=== PATIENT | male | born 1975 | race Caucasian/White ===

== ENCOUNTER 2023-07-21 12:25 | Emergency (ER) | payer BC, SELFPAY ==
[2023-07-21 12:30] VITALS: BP 193/111; PULSE 87; RESP 18; TEMP 36.6; O2SAT 98; BMI 32.5
--- NOTE | 2023-07-21 12:41 | CRLHL7_ITS ---
For Patients: As a result of the Cures Act, medical imaging exams and procedure reports are released immediately into your electronic medical record. You may view this report before your referring provider. If you have questions, please contact your health care provider. INDICATION: CP INDICATION: Chest pain. TECHNIQUE: Chest 1 view. COMPARISON: 11/03/2021. 07/18/2019. FINDINGS: Cardiovascular and mediastinum: Heart size and vasculature are normal in caliber and appearance. Mediastinum is within normal limits. Lungs and pleural space: Lungs are clear. No sign of infiltrate or mass. No sign of pleural effusion. No pneumothorax. Bones and soft tissues: manager process leads overlie the patient. IMPRESSION: Lungs are clear. Dictated by Duy Amaro MD @ 07/21/2023 1:34:50 PM Dictated by: Duy Amaro MD @ 07/21/2023 13:34:57 (Electronically Signed)
--- NOTE | 2023-07-21 12:49 | ED.GENADULT ---
HPI - General Adult General Chief complaint: Chest Pain Stated complaint: heartburn, chest pain Time Seen by Provider: 07/21/23 12:26 History of Present Illness HPI narrative: Patient is a 47 year white male was seen promptly on presentation to the ER with 1 month history of what he describes as ?heartburn?. He has been on pantoprazole and has not really helped him much she has also taken Pepcid. He has a history of using inhalers and blood pressure medication. He has not changed his diet at all. He denies bleeding in the stool or vomiting blood. He has not had a upper GI study for quite some time. He reports since his 20s. Really no anterior chest pain, no diaphoresis, no nausea, he occasionally feels lightheaded with the burning. He describes in his epigastrium radiating up to his upper chest. He has found no relief with the acid suppressant medicines. He has had no known heart disease. His EKG done on presentation by my read shows normal sinus rhythm normal EKG no acute ST T wave changes. Related Data Home Medications Medication Instructions Recorded Confirmed atorvastatin 10 mg tablet 10 mg PO QDAY 05/09/22 05/09/22 budesonide-formoterol HFA 80 1 inh inhalation ONCE 05/09/22 05/09/22 mcg-4.5 mcg/actuation aerosol inhaler (Symbicort) cromolyn 20 mg/2 mL solution for 2 ml inhalation TID 05/09/22 05/09/22 nebulization fluticasone propionate 44 1 puff inhalation BID 05/09/22 05/09/22 mcg/actuation HFA aerosol inhaler gabapentin 100 mg capsule 100 mg PO QDAY 05/09/22 05/09/22 levothyroxine 13 mcg capsule 13 mcg PO QDAY 05/09/22 05/09/22 metoprolol succinate 25 mg 12.5 mg PO QDAY 05/09/22 05/09/22 tablet,extended release 24 hr montelukast 4 mg oral granules in mg PO 05/09/22 05/09/22 packet pantoprazole 20 mg tablet,delayed 20 mg PO QDAY 05/09/22 05/09/22 release solifenacin 5 mg tablet 5 mg PO QDAY 05/09/22 05/09/22 tamsulosin 0.4 mg capsule 0.4 mg PO QDAY 05/09/22 05/09/22 Previous Rx's Medication Instructions Recorded azithromycin 500 mg tablet See Rx Instructions PO .COMPLEX #3 05/09/22 (Zithromax) tabs prednisone 20 mg tablet 40 mg (2 x 20 mg) PO QDAY #7 tabs 05/09/22 Allergies Allergy/AdvReac Type Severity Reaction Status Date / Time amoxicillin [From Augmentin] Allergy Intermediate Vomiting Verified 05/09/22 16:51 ciprofloxacin Allergy Intermediate headahce Verified 05/09/22 16:51 clavulanic acid Allergy Intermediate Vomiting Verified 05/09/22 16:51 [From Augmentin] doxycycline Allergy Mild itching Verified 05/09/22 16:51 Review of Systems Status of ROS: Reports: 6 or more systems reviewed and unremarkable except as noted in History and below [facility] Social History Smoking Status: Never smoker How often do you have a drink containing alcohol: never AUDIT-C Alcohol total score: 0 Non-prescribed substance use: denies use service: No Exam Narrative: Exam Narrative: Objective: In general patient apparent distress alert orient x3 HEENT is unremarkable no facial asymmetry Neck is supple Chest clear Heart rhythm regular heart murmur Abdomen benign soft nontender no masses or epigastric tenderness, no prominent aortic pulsations. Extremities are no edema neurologic nonfocal Const: Vital Signs, click to edit/add: Vital Signs - 24 hr 07/21/23 12:30 07/21/23 13:11 07/21/23 13:14 Temperature 97.8 F 97.8 F Pulse Rate [Left R adial] 87 83 Respiratory Rate 18 18 Blood Pressure [Le ft Upper Arm] 193/111 H 152/96 H Pulse Oximetry 98 82 L 97 Oxygen Delivery Me thod Room Air Room Air Course Vital Signs Vital signs: Initial Vital Signs Temperature 97.8 F 07/21/23 12:30 Temperature Source Temporal Artery Scan 07/21/23 12:30 Pulse Rate 87 07/21/23 12:30 Pulse Rhythm Regular 07/21/23 12:30 Pulse Strength 3+ Normal 07/21/23 12:30 Respiratory Rate 18 07/21/23 12:30 Blood Pressure 193/111 H 07/21/23 12:30 Blood Pressure Mean 138 H 07/21/23 12:30 Blood Pressure Position Supine 07/21/23 12:30 Pulse Oximetry 98 07/21/23 12:30 Oxygen Delivery Method Room Air 07/21/23 12:30 Vital Signs Temperature 97.8 F 07/21/23 12:30 Pulse Rate 87 07/21/23 12:30 Respiratory Rate 18 07/21/23 12:30 Blood Pressure 193/111 H 07/21/23 12:30 Pulse Oximetry 98 07/21/23 12:30 Oxygen Delivery Method Room Air 07/21/23 12:30 Temperature 98.0 F 07/21/23 14:25 Pulse Rate 76 07/21/23 14:25 Respiratory Rate 18 07/21/23 14:25 Blood Pressure 173/98 H 07/21/23 14:25 Pulse Oximetry 98 07/21/23 14:00 Oxygen Delivery Method Room Air 07/21/23 14:00 Medications Administered Medications: Discontinued Medications Generic Name Dose Route Start Last Admin Trade Name Freq PRN Reason Stop Dose Admin Sodium Chloride 1,000 mls @ 6,000 mls/hr 07/21/23 12:45 07/21/23 13:02 0.9 % Sodium Chloride 1000 Ml IV 07/21/23 12:54 6,000 mls/hr .Q10M MAGGY Administration Lidocaine/Aluminum/Magnesium/Simeth 30 ml 07/21/23 12:58 07/21/23 13:16 Mag Hydrox/Aluminum Hyd/Simeth 30 Ml Oral.Susp PO 07/21/23 12:59 30 ml ONCE ONE Administration Pantoprazole Sodium 40 mg 07/21/23 12:40 07/21/23 13:02 Pantoprazole Sodium 40 Mg Inj IVP 07/21/23 12:41 40 mg ONCE ONE Administration Medical Decision Making [facility] Narrative Medical decision making narrative: [age] year white male with a history of gastroesophageal reflux on pantoprazole and Pepcid be getting no relief at this time from his symptoms. I think at this time would be reasonable to look at his EKG which was normal and presentation do a point of care troponin he reports the pain is been fairly steady for the last month waxes and wanes but last few days it has been worse. Will check a point of care troponin laboratory studies, give him IV fluid IV Protonix and will also get him a a GI cocktail. I suspect he may need endoscopy if he looks normal in terms of his cardiac evaluation today. Addendum 2:00 p.m.: The patient feels a bit better he felt some response to the Maalox. His point of care troponin is 0 his EKG by my read looks normal with normal sinus rhythm. He has no other specific complaints. I think at this point he needs an EGD set up and this will be left with staff here to call him and set this up. Would have him switch to Prilosec 20 mg b.i.d. and have him use Maalox as needed. Asked him to elevate the head of the bed, not eat after 4:00 a.m. in the afternoon , avoid spicy foods. Return as needed. Will set up an EGD for him. Lab Data Labs: Lab Results 07/21/23 Range/Units 12:49 WBC 7.54 (4.50-11.00) K/uL RBC 5.21 (4.30-5.90) m/uL Hgb 15.6 (13.5-17.5) gm/dL Hct 47.3 (37.0-53.0) % MCV 91 (80-100) fL MCH 30 (26-34) pg MCHC 33 (32-36) gm/dL RDW Coeff of Mony 13.1 (11.5-15.5) % Plt Count 215 (140-440) K/uL Neut % (Auto) 64.0 (42.0-72.0) % Lymph % (Auto) 26.1 (20-44) % Yancey % (Auto) 6.9 (0.0-11.0) % Eos % (Auto) 2.8 (0.0-7.0) % Baso % (Auto) 0.1 (0.0-3.0) % Neut # (Auto) 4.82 (1.7-7.0) K/uL Lymph # (Auto) 1.97 (0.90-2.90) K/uL Yancey # (Auto) 0.50 (0.00-0.90) K/UL Eos # (Auto) 0.21 (0.00-0.50) K/uL Baso # (Auto) 0.01 (0.00-0.30) K/uL Abs Immat Gran (auto) 0.01 (0.00-0.30) K/uL Imm/Tot Granulo (auto) 0.1 % Sodium 139 (135-149) mmol/L Potassium 4.3 (3.6-5.1) mmol/L Chloride 103 (96-114) mmol/L Carbon Dioxide 26 (20-32) mmol/L Anion Gap 10 (7-15) mEq/L BUN 15 (5-24) mg/dL Creatinine 1.1 (0.5-1.5) mg/dL Estimated Creat Clear 82.13 Estimated GFR 83 ml/min Glucose 103 (60-115) mg/dL Calcium 9.7 (8.4-10.6) mg/dL Total Bilirubin 1.0 (0.1-1.5) mg/dL Direct Bilirubin 0.0 (0.0-0.5) mg/dL AST 30 (12-35) U/L ALT 42 (4-50) U/L Alkaline Phosphatase 68 (40-150) U/L C-Reactive Protein 0.7 (0.5-1.0) mg/dL NT-Pro-B Natriuret Pep 121 pg/mL Total Protein 7.7 (6.0-8.3) g/dL Albumin 4.5 (3.3-5.0) g/dL Amylase 53 (18-89) U/L Discharge Plan Discharge Clinical Impression: Chronic heartburn Patient Disposition: Home, Self-Care Condition: Improved Instructions: GERD (Gastroesophageal Reflux Disease) (DC) Additional Instructions: Stop Protonix, start Prilosec 20 mg b.i.d. for the next week, may use Maalox as well. Elevate the head of the bed, no need after 4:00 p.m.. Avoid spicy or acidic food. Will call you back with an EGD time for endoscopy to check your stomach and esophagus. Return sooner problems or concerns. Activity Level: Light activity Discharge Diet: Full Liquid Diet Detail: Advance diet as tolerated no acidic or spicy foods Prescriptions: No Action tamsulosin 0.4 mg capsule 0.4 mg PO QDAY atorvastatin 10 mg tablet 10 mg PO QDAY solifenacin 5 mg tablet 5 mg PO QDAY levothyroxine 13 mcg capsule 13 mcg PO QDAY pantoprazole 20 mg tablet,delayed release (DR/EC) 20 mg PO QDAY fluticasone propionate 44 mcg/actuation HFA aerosol inhaler 1 puff inhalation BID Rx Instructions: administer with spacer montelukast 4 mg granules in packet PO metoprolol succinate 25 mg tablet extended release 24 hr 12.5 mg PO QDAY gabapentin 100 mg capsule 100 mg PO QDAY cromolyn 20 mg/2 mL solution for nebulization 2 ml inhalation TID budesonide-formoterol [Symbicort] 80-4.5 mcg/actuation HFA aerosol inhaler 1 inh inhalation ONCE azithromycin [Zithromax] 500 mg tablet See Rx Instructions PO .COMPLEX Qty: 3 0RF Rx Instructions: take 500 mg on day 1, then 250 mg every 24 hours for 4 days prednisone 20 mg tablet 40 mg PO QDAY Qty: 7 0RF Rx Instructions: Take 40 mg on day 1, then 30 mg on day 2 and 3, then 20 mg on day 4 and 10 mg on day 5. Follow Up/Referrals: Provider,Not a Local [Primary Care Provider] - Stand Alone Forms: [facility]
[2023-07-21] MEDS: 0.9 % SODIUM CHLORIDE 1000 ml 1,000 ML 6000 ML IV (13:02)
[2023-07-21] MEDS: PANTOPRAZOLE SODIUM 40 MG INJ IVP (13:02)
[2023-07-21 13:06] VITALS: BMI 32.5
[2023-07-21 13:11] VITALS: O2SAT 82
[2023-07-21 13:14] VITALS: BP 152/96; PULSE 83; RESP 18; TEMP 36.6; O2SAT 97
[2023-07-21] MEDS: MAG HYDROX/ALUMINUM HYD/SIMETH 30 ML ORAL.SUSP PO (13:16)
[2023-07-21 13:20] LABS: Basophils Absolute Auto 0.01 K/uL (0.00-0.30); Basophils Percent Auto 0.1 % (0.0-3.0); Eosinophils Absolute Auto 0.21 K/uL (0.00-0.50); Eosinophils Percent Auto 2.8 % (0.0-7.0); Hematocrit 47.3 % (37.0-53.0); Hemoglobin* 15.6 gm/dL (13.5-17.5); Immature Granulocytes Abs Auto 0.01 K/uL (0.00-0.30); Immature Granulocytes Pct Auto 0.1 %; Lymphocytes Absolute Auto 1.97 K/uL (0.90-2.90); Lymphocytes Percent Auto 26.1 % (20-44); Mean Corpuscular HGB Conc 33 gm/dL (32-36); Mean Corpuscular Hemoglobin 30 pg (26-34); Mean Corpuscular Volume 91 fL (80-100); Monocytes Percent Auto 6.9 % (0.0-11.0); Neutrophils Absolute Auto 4.82 K/uL (1.7-7.0); Platelet Count* 215 K/uL (140-440); RDW Coefficient of Variation % 13.1 % (11.5-15.5); Red Blood Count 5.21 m/uL (4.30-5.90); White Blood Count* 7.54 K/uL (4.50-11.00)
[2023-07-21 13:26] LABS: Slide Review Reflex No
[2023-07-21 13:30] VITALS: BP 157/74; PULSE 74; RESP 18; O2SAT 97
[2023-07-21 13:31] LABS: Albumin* 4.5 g/dL (3.3-5.0); Chloride* 103 mmol/L (96-114)
[2023-07-21 13:32] LABS: Potassium* 4.3 mmol/L (3.6-5.1); Sodium* 139 mmol/L (135-149)
[2023-07-21 13:34] LABS: Amylase* 53 U/L (18-89)
[2023-07-21 13:35] LABS: Alanine Aminotransferase* 42 U/L (4-50); Alkaline Phosphatase* 68 U/L (40-150); Anion Gap 10 mEq/L (7-15); Aspartate Amino Transferase* 30 U/L (12-35); Blood Urea Nitrogen* 15 mg/dL (5-24); Calcium* 9.7 mg/dL (8.4-10.6); Carbon Dioxide* 26 mmol/L (20-32); Creatinine* 1.1 mg/dL (0.5-1.5); Est. Creatinine Clearance* 82.13; Estimated Glomerular Filt Rate 83 ml/min; Glucose* 103 mg/dL (60-115); Total Protein* 7.7 g/dL (6.0-8.3)
[2023-07-21 13:38] LABS: C Reactive Protein* 0.7 mg/dL (0.5-1.0)
[2023-07-21 13:47] LABS: NT Pro B Type NatriureticPept* 121 pg/mL
[2023-07-21 14:00] VITALS: BP 173/98; PULSE 76; RESP 18; O2SAT 98
[2023-07-21 14:25] VITALS: BP 173/98; PULSE 76; RESP 18; TEMP 36.7
== END 2023-07-21 14:26 | disposition home or self-care (01) ==
PROVIDERS: Emergency Provider Family Medicine
DX: R12 Heartburn (principal)
CPT/HCPCS: 36415; 71045; 80048; 80076; 82150; 83880; 84484; 85025; 86140; 93005; 94761; 96374; 99284; A9270; C9113; J7030

== ENCOUNTER 2023-08-01 10:27 | Outpatient (CLI) | payer BC, SELFPAY ==
--- NOTE | 2023-08-01 11:11 | W.ANESCHARGE ---
Anesthesia Charges Start Date/Time Anesthesia Start Date: 08/01/23 Anesthesia Start Time: 10:52 Stop Date/Time Anesthesia Stop Date: 08/01/23 Anesthesia Stop Time: 11:10
--- NOTE | 2023-08-01 11:14 | W.ANESCHARGE ---
Anesthesia Charges Start Date/Time Anesthesia Start Date: 08/01/23 Anesthesia Start Time: 10:52 Stop Date/Time Anesthesia Stop Date: 08/01/23 Anesthesia Stop Time: 11:10
== END 2023-08-01 10:28 | disposition home or self-care (01) ==
LOC: OP CLINIC 10:28
PROVIDERS: Visit Provider Internal Medicine
DX: R10.13 Epigastric pain (principal); R12 Heartburn; K29.70 Gastritis, unspecified, without bleeding
CPT/HCPCS: 00731; 43239; 88305; J2704